=== PATIENT | male | born 1955 | race Caucasian/White ===

== ENCOUNTER 2022-07-16 12:15 | Inpatient (IN) | payer BC, MEDICARE ==
[2022-07-16] VITALS (12 sets, daily range): BP systolic 97–137; BP diastolic 63–88
[~2022-07-16] VITALS: Ht 175.3 cm; Wt 88.2 kg
--- NOTE | 2022-07-16 12:34 | Pre-Op Note & Conscious Sedat ---
Pre-Operative Progress Note Date H&P Reviewed: Jul 16, 2022 Time H&P Reviewed: 12:34 History & Physical: H&P Reviewed, Patient Examed, No changes noted Pre-Op Diagnosis: Inferior STEMI Conscious Sedation Pre-Proced ASA Score 2 For ASA 3 and 4: Consider anesthesia and medical clearance. Also, for patients with a history of failed moderate sedation consider anesthesia. Airway Lungs Heart ASA score ASA 1: a normal healthy patient ASA 2: a patient with a mild systemic disease (mid diabetes, controlled hypertension, obesity ASA 3: a patient with a severe systemic disease that limits activity (angina, COPD, prior Myocardial infarction) ASA 4: a patient with an incapacitating disease that is a constant threat to life (CHF, renal failure) ASA 5: a moribund patient not expected to survive 24 hrs. (ruptured aneurysm) ASA 6: a declared brain- patient whose organs are being harvested. For emergent operations, add the letter E after the classification Mallampati Classification Grade 2 Sedation Plan Analgesia, Amnesia, Plan communicated to team members, Discussed options with patient/fam, Discussed risks with patient/fam The patient is an appropriate candidate to undergo the planned procedure, sedation, and anesthesia. The patient immediately re-assessed prior to indication. EARL SHEPARD JR, MD Jul 16, 2022 12:34
--- NOTE | 2022-07-16 12:34 | Consultation-Cardiology ---
HPI-Cardiology Cardiology Consultation: Date of Consultation 07/16/22 Date of Admission 07/16/22 Attending Physician Admitting Physician Admitting Physician: aErl Peterson Jr, MD Attending Physician: Earl Peterson Jr, MD Consulting Physician EARL PETERSON JR, MD HPI: Time Seen by a Provider: 12:33 Chief Complaint: HISTORY AND PHYSICAL FOR STEMI ADMISSION Mj Hinson is a 67 yo male with hx of HTN presenting from [facility] via EMS after EKG there revealed what appears to be a STEMI in the inferior leads. He presented to [facility] this morning following onset of chest tightness with pain radiation into his neck, SOB, lightheadedness, and diaphoresis. He has no history of medical issues related to his heart other than hypertension, and no familial heart history. He has never experienced symptoms like this before. He has smoked 1 pack/day of cigarettes for years. He describes the pain as 10 out of 10. This started while he was working on building a wall. He went to the outside emergency room and due to the inferior ST evaluation noted on his electrocardiogram, I was contacted about a code STEMI. He was subsequently transferred to our hospital for further evaluation. In the outside hospital he was treated with aspirin, morphine and intravenous heparin. By the time he arrived to our hospital, his pain was 4/10. He denies dyspnea, paroxysmal nocturnal dyspnea, orthopnea, palpitations, syncope, or lower extremity edema. Certain portions of this document may have been dictated utilizing voice recognition technology. Inherent to this technology, typographical and grammat ical errors may exist. As much as I am diligent to identify and correct these mistakes, some errors may remain in the document. Review of Systems-Cardiology Review of Systems Other comments Review of 10 organ systems is as per the history of present illness, otherwise negative. YZX-Jjjnpy-Xvemsq Hx Patient Social History Marrital Status: Smoking Status: Current Everyday Smoker Past Medical History PMH As described under Assessment. Family Medical History Family Medical History: The patient does not know of any family history of premature coronary artery disease in first-degree relatives. Allergies and Home Medications Allergies Coded Allergies: No Known Drug Allergies (Unverified , 07/16/22) Patient Home Medication List Home Medication List Reviewed: Yes Amlodipine Besylate (Amlodipine Besylate) 5 Mg Tablet, 5 MG PO DAILY, (Reported) Entered as Reported by: KAYDEN SINHA on 07/16/221409 Last Action: Reviewed Naproxen Sodium (Aleve) 220 Mg Tablet, 220-440 MG PO BID PRN for PAIN-MILD (1- 4), (Reported) Entered as Reported by: KAYDEN HINOJOSAZANT on 07/16/221409 Last Action: Reviewed Exam Physical Exam General: Alert. No acute distress. Well nourished and appears stated age. Eye: Extraocular movements are intact. Conjunctivae are clear. There are no xanthelasma. HENT: Normocephalic. Atraumatic. Carotid pulsations 2/2 without bruits. Neck: Jugular venous pressure does not appear elevated. No thyromegaly appreciated. Respiratory: Lungs are clear to auscultation. Respirations are non-labored. Breath sounds are equal. Symmetrical chest wall expansion. Cardiovascular: Normal rate. Regular rhythm. No murmur. No gallop. Point of maximal impulse is not appear displaced. Good pulses equal in all extremities. No edema. Gastrointestinal: Soft. Normal bowel sounds. Skin: Skin turgor is normal. There is no pallor. Musculoskeletal: No kyphosis or scoliosis appreciated. Neurologic: Alert and oriented to person, place, time. Cranial nerves 3-12 appear grossly intact. The patient has good motor tone strength in the upper and lower extremities bilaterally. Psychiatric: Cooperative. Appropriate mood & affect. ECG Impression ECG Comment Electrocardiogram from the outside emergency room shows sinus rhythm with inferior ST elevation and ST depression in leads I and aVL. Diagnosis/Problems Diagnosis/Problems (1) ST elevation myocardial infarction (STEMI) of inferior wall, initial episode of care Status: Acute Assessment & Plan: This was due to acute thrombotic occlusion of the distal right coronary artery just distal to the bifurcation. This was treated with 1 drug-eluting stent which jailed the posterior descending artery. He also has mild to moderate residual disease in the proximal and mid right coronary artery. He has been started on aspirin, ticagrelor, beta-nicki and intensive dose statin medication. I will obtain an echocardiogram later today to assess his left ventricular function. He will be admitted to the telemetry unit and will probably need to stay 2 nights due to the acute myocardial infarction. (2) Primary hypertension Assessment & Plan: I will change amlodipine which she was taking at home over to beta-nicki in light of the acute myocardial infarction. (3) Cigarette smoker Assessment & Plan: He needs to quit smoking. He was counseled in this regard. (4) Obesity Assessment & Plan: He needs to work on weight loss. He was counseled in this regard. EARL PETERSON JR, MD Jul 16, 2022 12:34 SHAWN PATRICIA Jul 16, 2022 12:46
--- OUTSIDE RECORDS SUMMARY | 2022-07-16 12:34 | XMS REPORT | Clinical Summary ---
Author Author [facility] Organization [facility] Address Unknown Phone Unavailable Care Team Providers Care Director Of Global Talent Name Role Phone Self, Referral PCP Unavailable Jose A Loja MD Unavailable Source Comments Some departments are not documenting in the electronic medical record. If you d o not see the information that you expected, contact Release of Information in [facility] [employer] Information Management department at [phone] for further assistan ce in locating additional records.[facility] Allergies No known active allergies Medications End Date Status Medication Sig Dispensed Refills Start Date Active meloxicam (MOBIC) 15 mg Take 1 Tab by 0 PO tablet mouth Daily. Active hydrocodone/acetaminophen Take 1-2 Tabs 40 Tab 0 (VICODIN) 5/500 mg PO by mouth 0 tablet Every 4 Hours as needed for Pain. Active docusate (COLACE) 100 mg Take 1 Cap by 60 Cap 3 PO capsule mouth Twice 0 Daily as needed for Constipation. Active Problems Not on file Surgical History Surgery Date Site/Laterality Comments HX TONSILLECTOMY childhood HIP SURGERY ~1985 Back & Hip Surgery HX KNEE ARTHROSCOPY 1996 Left HX KNEE ARTHROSCOPY 1998 Left HX KNEE ARTHROSCOPY 2000 Right Medical History Medical History Date Comments DJD (degenerative joint disease) Social History Date Tobacco Use Types Packs/Day Years Used Former Smoker Smokeless Tobacco: Never Used Comments: 1028-10 Comments Alcohol Use Standard Drinks/Week Yes 2 (1 standard drink = 0.6 o z pure alcohol) Sex Assigned at Date Recorded Not on file Obstetrics History Last Filed Vital Signs Reading Time Taken Comments Vital Sign 136/86 07/11/2010 6:18 AM CDT Blood Pressure 74 07/11/2010 6:18 AM CDT Pulse 37.1 C (98.7 F) 07/11/2010 6:18 AM CDT Temperature - - Respiratory Rate 93% 07/11/2010 6:18 AM CDT Oxygen Saturation - - Inhaled Oxygen Concentration 81.7 kg (180 lb 1.6 oz) 07/10/2010 8:55 AM CDT Weight 175.3 cm (5' 9") 07/05/2010 11:00 AM CDT Height 26.6 07/05/2010 11:00 AM CDT Body Mass Index Plan of Treatment Health Maintenance Due Date Last Done Comments COVID-19 VACCINE (#1) 1957 HIV SCREENING 1972 DTAP/TDAP VACCINES (1 - 1975 Tdap) HEPATITIS C SCREENING 1975 PHYSICAL (COMPREHENSIVE) 1975 EXAM COLORECTAL CANCER 2002 SCREENING SHINGLES RECOMBINANT 2007 VACCINE (1 of 2) DEPRESSION SCREENING 09/07/2021 INFLUENZA VACCINE 04/07/2022 ABDOMINAL AORTIC ANEURYSM 2022 SCREENING PNEUMOCOCCAL VACCINE (1 - 2022 PCV) Results Not on filefrom Last 3 Months Advance Directives Date Inactivated Comments Code Status Date Activated 07/11/2010 3:24 PM Full Code 07/09/2010 4:17 PM Care Teams Start Date End Date Director Of Global Talent Relationship Specialty 07/05/10 Self, Referral PCP - General 07/08/10 Jose A Loja MD [address] [facility] [address] [place] [address]
[2022-07-16] MEDS ORDERED: VERAPAMIL 5 MG/2 ML (CALAN) VIAL IV ONE (12:44)
[2022-07-16] MEDS ORDERED: fentaNYL INJ 100 MCG/2 ML AMP ONE (12:44)
[2022-07-16] MEDS ORDERED: NS (IVPB) 0 ML ONE (12:44)
[2022-07-16] MEDS ORDERED: NS IV 1000 ML 1,000 ML ONE (12:45)
[2022-07-16] MEDS ORDERED: niCARdipine IV 50 MG (PYXIS DRIP KIT) ONE (12:45)
[2022-07-16] MEDS ORDERED: LIDOCAINE 1% INJ 30 ML (XYLOCAINE) VIAL ONE (12:45)
[2022-07-16] MEDS ORDERED: MIDAZOLAM 5 MG/5 ML (VERSED) VIAL ONE (12:45)
[2022-07-16] MEDS ORDERED: HEParin 1000 UNIT/ML (10ML VIAL) FOR BOLUS ONE (12:45)
[2022-07-16] MEDS ORDERED: NITRO DRIP 25000 MCG/D5W 250 ML IV ONE (12:45)
[2022-07-16] MEDS ORDERED: HEParin (CATH LAB) 2,000 ML IV ONE (12:45)
[2022-07-16] MEDS ORDERED: ATROPINE INJECTION 1 MG/10 ML SYR (ABBOTT) ONE (12:55)
[2022-07-16] MEDS ORDERED: TICAGRELOR 90 MG TABLET (BRILINTA) PO ONE (12:56)
[2022-07-16] MEDS ORDERED: ACETAMINOPHEN 325 MG TABLET PO PRN (14:00)
[2022-07-16] MEDS ORDERED: ANTACID SUSP 30 ML UDC (MYLANTA) PO PRN (14:00)
[2022-07-16] MEDS ORDERED: ZOLPIDEM 5 MG (AMBIEN) TAB PO PRN (14:00)
[2022-07-16] MEDS ORDERED: AMLO-250 PO (14:10)
[2022-07-16] MEDS ORDERED: NAPR220T66 PO (14:10)
[2022-07-16] MEDS: NS IV 1000 ML 1,000 ML IV SCH ×2 (16:50→23:16)
--- NOTE | 2022-07-16 17:13 | Cardiac Cath Report ---
CARDIAC CATHETERIZATION DATE OF PROCEDURE: 07/16/2022 INDICATION: Inferior STEMI. HISTORY: The patient is a 67 year old male with no previously known history of coronary artery disease who presented to [facility] emergency room after approximately 1 hour of chest pain. His electrocardiogram at the outside emergency room showed inferior ST elevation with ST depression in the lateral limb leads. A code STEMI was called and he was transferred to our hospital for emergent cardiac catheterization. Given his current clinical status, he is considered severely frail. He has no history of heart failure. PROCEDURES PERFORMED: 1. Left heart catheterization with hemodynamic measurements. 2. Diagnostic [place] coronary angiography. 3. Drug-eluting stent placement to the distal right coronary artery. This was the ischemia related vessel for the acute inferior ST elevation myocardial infarction. PROCEDURE DESCRIPTION: After informed consent and in the fasting state, left heart catheterization was performed through the right radial artery utilizing a 6 Cymro system by percutaneous approach. A 5 Cymro JL 3.5 diagnostic catheter was utilized to interrogate the left coronary artery and a 6 Cymro JR4 guide catheter was utilized to interrogate the left ventricle and right coronary artery and for the percutaneous coronary intervention. All catheters were exchanged over a guidewire. Following the procedure, a vascular band was applied to the radial artery access site and the sheath was removed with good hemostasis. RESULTS: HEMODYNAMICS: The aortic pressure was 135/78 mmHg. The left ventricular pressure was 147/0 mmHg with a left ventricular end-diastolic pressure of 28 mmHg. There was no significant pressure gradient upon pullback across aortic valve. CORONARY ANGIOGRAPHY: Left main coronary artery: There was a 50% stenosis in the ostium with JERI-3 flow. Left anterior descending coronary artery: Free of significant disease but there was approximately a 20 mm segment of bridging in the distal segment after the last significant diagonal branch. There was a moderate sized first diagonal branch which contained a 50% stenosis proximally with JERI-3 flow. Left circumflex coronary artery: Free of significant disease. Right coronary artery: There was a 30% stenosis proximally followed by a 50% stenosis in the midsegment and the vessel was totally occluded distally just distal to the takeoff of the posterior descending artery with evidence of thrombus and JERI 0 flow. This was the ischemia related vessel for the acute myocardial infarction. PERCUTANEOUS CORONARY INTERVENTION: Percutaneous coronary intervention was c arried out on the distal right coronary artery through the 6 Cymro JR4 guide catheter. The lesion was successfully crossed with a Whisper medium support guidewire. I subsequently performed coronary angioplasty with a 2.5 x 12 mm Trek balloon at a pressure of 8-10 lulu for several inflations. Flow was restored. I subsequently deployed a 3 x 33 mm drug-eluting Xience Skypoint diana nt in the distal right coronary artery overlapping and jailing the posterior descending artery and a pressure of 16 lulu. Following stent placement, there was 0% residual stenosis with JERI-3 flow. There was no evidence of plaque shift into the posterior descending artery. IMPRESSION: 1. Markedly elevated left ventricular end-diastolic pressure. 2. There was a total thrombotic occlusion of the distal right coronary artery with JERI 0 flow. This was the ischemia related vessel for the acute inferior ST elevation myocardial infarction. 3. There was mild to moderate disease in the proximal and mid right coronary artery as well as an area of bridging in the distal left anterior descending coronary artery as outlined above. 4. Status post drug-eluting stent placement to the distal right coronary artery with a 3 x 33 mm Xience Skypoint stent with 0% residual stenosis and JERI-3 flow . The stent does intermediate the posterior descending artery but there was no evidence of plaque shift or compromise of flow in this branch. 5. I will obtain an echocardiogram later today to assess his left ventricular function. Certain portions of this document may have been dictated utilizing voice recognition technology. Inherent to this technology, typographical and grammatical errors may exist. As much as I am diligent to identify and correct these mistakes, some errors may remain in the document. EARL SHEPARD JR, MD Jul 16, 2022 17:13
[2022-07-16] MEDS: NICOTINE 21 MG (NICODERM) PATCH TD SCH (17:57)
[2022-07-16] MEDS: TICAGRELOR 90 MG TABLET (BRILINTA) PO SCH (22:30)
[2022-07-16] MEDS: ROSUVASTATIN 20 MG (CRESTOR) TABLET PO SCH (22:30)
[2022-07-17] VITALS (7 sets, daily range): BP systolic 127–146; BP diastolic 62–78
[2022-07-17 06:18] LABS: BASOPHILS # (AUTO) 0.1 10^3/uL (0.0-0.1); BASOPHILS % (AUTO) 1 % (0-10); EOSINOPHILS # (AUTO) 0.4 10^3/uL (0.0-0.3); EOSINOPHILS % (AUTO) 3 % (0-10); HEMATOCRIT 44 % (40-54); HEMOGLOBIN 15.2 g/dL (13.3-17.7); LYMPHOCYTES # (AUTO) 2.2 10^3/uL (1.0-4.0); LYMPHOCYTES % (AUTO) 17 % (12-44); MEAN CORPUSCULAR HEMOGLOBIN 32 pg (25-34); MEAN CORPUSCULAR HGB CONC 35 g/dL (32-36); MEAN CORPUSCULAR VOLUME 92 fL (80-99); MEAN PLATELET VOLUME 10.8 fL (9.0-12.2); MONOCYTES # (AUTO) 1.5 10^3/uL (0.0-1.0); MONOCYTES % (AUTO) 12 % (0-12); NEUTROPHILS # (AUTO) 8.7 10^3/uL (1.8-7.8); NEUTROPHILS % (AUTO) 67 % (42-75); PLATELET COUNT 258 10^3/uL (130-400); WHITE BLOOD COUNT 12.9 10^3/uL (4.3-11.0)
[2022-07-17 06:37] LABS: POTASSIUM 3.9 MMOL/L (3.6-5.0)
[2022-07-17 06:38] LABS: CALCIUM 9.3 MG/DL (8.5-10.1)
[2022-07-17 06:43] LABS: CREATININE SERUM 1.27 MG/DL (0.60-1.30)
[2022-07-17] MEDS: NICOTINE 21 MG (NICODERM) PATCH TD SCH (07:33)
[2022-07-17] MEDS: NICOTINE PATCH REMOVAL TP SCH (07:34)
[2022-07-17] MEDS: ASPIRIN E.C. 81 MG (ECOTRIN) TAB PO SCH (08:15)
[2022-07-17] MEDS: TICAGRELOR 90 MG TABLET (BRILINTA) PO SCH ×2 (08:15→20:37)
--- NOTE | 2022-07-17 08:40 | Cardiology Progress Note ---
Subjective Date Seen by Provider: Jul 17, 2022 Time Seen by Provider: 08:00 Subjective/Events-last exam Pt reports feeling much better after yesterday's procedure. He denies CP, SOB, edema, palpitations, and syncope. He experienced some anxiety trying to sleep overnight. He is hoping to "get up and moving today" and expresses that he'd like to be discharged home. Dr. Peterson He denies any further chest discomfort. He denies dyspnea, palpitations, syncope, or ankle edema. He was wearing a nicotine patch last night but became anxious and removed the patch. Certain portions of this document may have been dictated utilizing voice recognition technology. Inherent to this technology, typographical and grammatical errors may exist. As much as I am diligent to identify and correct these mistakes, some errors may remain in the document. Review of Systems General: Fatigue, Appetite HEENT: No Head Aches, No Visual Changes Pulmonary: No Dyspnea Cardiovascular: No: Chest Pain, Palpitations, Edema, Lt Headedness Gastrointestinal: No: Vomiting, Abdominal Pain Genitourinary: No Dysuria; Frequency Musculoskeletal: other (denies any pain) Neurological: No: Numbness, Confusion Focused Exam Respiratory: Chest Non Tender, Lungs Clear, Normal Breath Sounds, No Accessory Muscle Use, No Respiratory Distress Cardiovascular: Regular Rate, Rhythm (slight bradycardia recorded overnight, currently normal rate), No Edema Skin: normal color, warm/dry Objective-Cardiology Exam Last Set of Vital Signs Vital Signs 07/17/22 07/17/22 07:44 08:00 Temp 36.4 Pulse 60 Resp 16 B/P (MAP) 137/75 (95) Pulse Ox 97 O2 Delivery Room Air I&O Intake and Output 07/16/22 23:59 Intake Total 300 ml Output Total 775 ml Balance -475 ml Intake Oral 300 ml Output Urine Total 775 ml Daily Weight Change No General: Alert, Oriented X3, Cooperative, No Acute Distress HEENT: Atraumatic, EOMI Neck: Supple Lungs: Clear to Auscultation, Normal Air Movement Heart: Regular Rate, No Murmurs Abdomen: Soft, No Tenderness Extremities: No Edema, No Tenderness/Swelling Skin: No Significant Lesion Neuro: Normal Speech, Normal Tone Psych/Mental Status: Mental Status NL, Mood NL Other physical findings Dr. Peterson: General: Alert. No acute distress. Eye: No xanthelasma. HENT: Normocephalic. Neck: Jugular venous pressure does not appear elevated. Respiratory: Lungs are clear to auscultation. Respirations are non-labored. Breath sounds are equal. Symmetrical chest wall expansion. Cardiovascular: Normal rate. Regular rhythm. No murmur. No gallop. No edema. Gastrointestinal: Soft. Normal bowel sounds. Skin: Warm. Dry. Neurologic: Alert and oriented to person, place, time. Cranial nerves 3-11 grossly intact. Psychiatric: Cooperative. Appropriate mood & affect. Results Lab Laboratory Tests 07/17/22 05:53 A/P-Cardiology Admission Diagnosis (1) ST elevation myocardial infarction (STEMI) of inferior wall, initial episode of care Status: Acute Assessment & Plan: This was due to acute thrombotic occlusion of the distal right coronary artery just distal to the bifurcation. This was treated with 1 drug-eluting stent which jailed the posterior descending artery. He also has mild to moderate residual disease in the proximal and mid right coronary artery. He has been started on aspirin, ticagrelor, beta-nicki and intensive dose statin medication. His ejection fraction is normal. He is having some AIVR (accelerated idioventricular rhythm) but no ventricular tachycardia. I will observe him in the hospital for 1 additional night on telemetry and he can probably be discharged home tomorrow. I will transfer him to the medical floor with telemetry. (2) Primary hypertension Assessment & Plan: Blood pressure has been reasonably controlled with carvedilol. He was on amlodipine at home which I discontinued. (3) Mixed hyperlipidemia Assessment & Plan: Continue intensive dose statin medication in light of the acute myocardial infarction. (4) Cigarette smoker Assessment & Plan: He needs to quit smoking. He was counseled in this regard. Assessment/Plan STEMI- inferior wall Primary HTN Smokes Obesity HLD- according to BMP this a.m. He has been started on aspirin, ticagrelor, beta-nicki and intensive dose statin medication. His amlodipine has been d/c Expecting a 2-night overnight stay due to [place] Continue to monitor telemetry Completions Manager on stopping smoking Supervisory-Addendum Brief Verification & Attestation Participated in pt care: history, MDM, physical Personally performed: exam, history, MDM Care discussed with: Medical Student Procedures: n/a Results interpretation: Verified all documentation I verified the above information. SHAWN PATRICIA Jul 17, 2022 08:40 EARL PETERSON JR, MD Jul 17, 2022 10:35
[2022-07-17] MEDS: NS IV 1000 ML 1,000 ML IV SCH (09:27)
[2022-07-17] MEDS ORDERED: NITROGLYCERIN 0.4 MG SL TABS BTL 25'S SL PRN (10:30)
--- NOTE | 2022-07-17 16:24 | Diagnostic Imaging Report ---
INDICATION: Myocardial infarction. PA and lateral chest obtained at 10:59 a.m. FINDINGS: Heart and mediastinal silhouette are normal in appearance. The lungs appear clear except for a calcified granuloma in the right upper lobe. There is no pneumothorax or pleural fluid. IMPRESSION: No acute process in the chest. Dictated by: Dictated on workstation # [id number]
[2022-07-17] MEDS: ROSUVASTATIN 20 MG (CRESTOR) TABLET PO SCH (20:37)
[2022-07-18 03:25] VITALS: BP 135/64
[2022-07-18 08:00] VITALS: BP 143/77
[2022-07-18] MEDS ORDERED: NITR0.4T42 SL (08:33)
[2022-07-18] MEDS ORDERED: TICA90TA PO (08:33)
[2022-07-18] MEDS ORDERED: ROSU20TA32 PO (08:33)
[2022-07-18] MEDS ORDERED: ASPI-1238 PO (08:33)
[2022-07-18] MEDS ORDERED: CARV3.122 PO (08:33)
[2022-07-18] MEDS: NICOTINE PATCH REMOVAL TP SCH (09:01)
[2022-07-18] MEDS: TICAGRELOR 90 MG TABLET (BRILINTA) PO SCH (09:04)
[2022-07-18] MEDS: ASPIRIN E.C. 81 MG (ECOTRIN) TAB PO SCH (09:04)
[2022-07-18] MEDS: NICOTINE 21 MG (NICODERM) PATCH TD SCH (09:04)
--- NOTE | 2022-07-18 09:29 | Discharge Summary ---
Diagnosis/Chief Complaint Date of Admission Jul 16, 2022 at 12:15 Date of Discharge 07/18/22 Discharge Date: Jul 18, 2022 Discharge Time: 10:30 Admission Diagnosis Admission Diagnosis Inferior STEMI Discharge Diagnosis 1. Inferior STEMI. 2. Coronary artery disease with unstable angina. 3. Primary hypertension. 4. Mixed hyperlipidemia. 5. Cigarette smoker. 6. Overweight. Reason Hospital Visit Inferior STEMI transferred from outside hospital. Discharge Summary Hospital Course Was the Problem List Reviewed?: Yes Hospital Course The patient presented to the emergency room at [facility] approximately 1 hour after the onset of chest pain. His electrocardiogram showed an inferior STEMI and he was transferred for emergent cardiac catheterization which he underwent on 07/16 at our facility. This showed a thrombotic occlusion of the distal right coronary artery that was treated with balloon angioplasty and 1 drug-eluting stent. He did have some ventricular arrhythmias in the first 24 hours. He had an echocardiogram showing a normal ejection fraction. He was placed on the usual guideline directed medical therapy with aspirin, ticagrelor, carvedilol, and intensive dose statin medication. His chest discomfort resolved by the following day. He had no signs of heart failure and the arrhythmias resolved within 48 hours. Over 30 minutes was spent in direct [id number] contact with the patient and preparing this discharge summary. Labs Laboratory Tests 07/16/22 14:30: Troponin I 5.989*H 07/16/22 22:34: Troponin I 42.064*H 07/17/22 05:53: Troponin I 22.655*H, White Blood Count 12.9H, Neutrophils # (Auto) 8.7H, Monocytes # (Auto) 1.5H, Eosinophils # (Auto) 0.4H, Carbon Dioxide Level 19L, Triglycerides Level 189H, Cholesterol Level 209H, LDL Cholesterol Direct 136H, HDL Cholesterol 39L Procedures Echocardiogram. Cardiac catheterization and percutaneous coronary intervention. Discharge Physical Examination Allergies: Coded Allergies: No Known Drug Allergies (Unverified , 07/16/22) Vitals & I&Os Vital Signs Date Time Temp Pulse Resp B/P (MAP) Pulse Ox O2 Delivery O2 Flow Rate FiO2 07/18/22 11:58 07/18/22 09:31 95 Room Air 07/18/22 08:00 36.3 55 20 General Appearance: Alert, Oriented X3, Cooperative, No Acute Distress HEENT: Atraumatic, EOMI, Mucous Memb Moist/[place] Respiratory: Clear to Auscultation, Normal Air Movement Cardiovascular: Regular Rate, Normal S1, Normal S2, No Murmurs Abdominal: Normal Bowel Sounds, Soft Extremities: No Clubbing, No Cyanosis, No Edema, Normal Pulses Skin: No Rashes, No Breakdown, No Significant Lesion Neuro: Normal Speech, Strength at 5/5 X4 Ext, Cranial Nerves 3-12 NL Psych/Mental Status: Mental Status NL, Mood NL Discharge Home Medications Reviewed and agree with Discharge Medication list on patient's Discharge Instruction sheet Condition at Discharge Improved. Instructions to Patient/Family Please see electronic discharge instructions given to patient. Clinical Quality Measures End of Life/Advance Care Plan: Advance Care discuss with: patient Plan: initiate discussion Admission Status Admission Status: Inpatient Order (span 2 midnights) Reason for Inpatient Admission: Acute ST elevation myocardial infarction AMI/AHF: Ejection Fraction: Above/Equal to 40 D/C Inst. for HF given: No ASA Given prior to admit: Yes ASA po Prior to arrival: Yes DVT/VTE Risk/Contraindication: VTE Addressed: Yes VTE Present on Admission: No EARL SHEPARD JR, MD Jul 18, 2022 09:29
== END 2022-07-18 11:26 | disposition home or self-care (01) | DRG 247 ==
LOC: CSD 12:15 → 4TH 07-17 16:21
PROVIDERS: ADMIT Internal Medicine Cardiovascular Disease; ATTEND Internal Medicine Cardiovascular Disease
PROC: 027034Z Dilation of Coronary Artery, One Artery with Drug-eluting Intraluminal Device, Percutaneous Approach (ICD-10-PCS; principal; 2022-07-16)
PROC: B2111ZZ Fluoroscopy of Multiple Coronary Arteries using Low Osmolar Contrast (ICD-10-PCS; 2022-07-16)
PROC: 4A023N7 Measurement of Cardiac Sampling and Pressure, Left Heart, Percutaneous Approach (ICD-10-PCS; 2022-07-16)
DX: I21.11 ST elevation (STEMI) myocardial infarction involving right coronary artery (principal); I25.110 Atherosclerotic heart disease of native coronary artery with unstable angina pectoris; I10 Essential (primary) hypertension; F17.210 Nicotine dependence, cigarettes, uncomplicated; E78.2 Mixed hyperlipidemia; E66.3 Overweight; Z68.28 Body mass index [BMI] 28.0-28.9, adult
CPT/HCPCS: 36415; 71046; 80048; 80061; 84484; 85025; 85347; 93005; 93306; 93458

== ENCOUNTER → 2023-03-18 | Outpatient (CLI) | payer MEDICARE, OTHER ==
[~2023-03-18] MED LIST: AMLO-250 PO; ASPI-1238 PO; CARV3.122 PO; CATHETER FLUSH 10 ML SYR IVP PRN; NAPR220T66 PO; NITR0.4T42 SL; REGADENOSON 0.4 MG/5 ML SYR (LEXISCAN) IV ONE; ROSU20TA32 PO; TICA90TA PO
[2023-03-18 09:37] VITALS: BP 186/94
--- NOTE | 2023-03-19 11:38 | STRESS TEST ---
DATE OF SERVICE: 03/18/2023 ORDERING PHYSICIAN: Dr. Day. CLINICAL DIAGNOSIS: Chest discomfort. Baseline images were carried out after injection of 10.95 mCi of technetium-99m tetrofosmin. This was followed by 0.4 regadenoson and 31.8 mCi of technetium-99m tetrofosmin for stress imaging. The electrocardiogram showed sinus rhythm at baseline. It did not change significantly with regadenoson infusion. The patient noted some headache and shortness of breath following regadenoson infusion, which resolved in a few minutes. Review of images at rest and following stress does not indicate any perfusion defects consistent with significant myocardial ischemia or infarction. Gated images show normal global left ventricular systolic function with normal regional wall motion. Left ventricular ejection fraction is calculated to be 56%. CONCLUSIONS: 1. No evidence of significant myocardial ischemia or infarction study. 2. Normal regional wall motion. 3. Normal global left ventricular systolic function with a calculated ejection fraction of 56%. Job ID: [id number] DocumentID: [id number] Dictated Date: 03/19/2023 10:10:14 Manager Developmental Date: 03/19/2023 11:36:00 Dictated By: GINGER DAY MD; MA; FACP; FACC;
== END ==
LOC: CARD 08:15
PROVIDERS: ATTEND Internal Medicine Cardiovascular Disease
DX: R07.89 Other chest pain (principal)
CPT/HCPCS: 78452; 93017; A9502

== ENCOUNTER → 2023-03-23 | Outpatient (CLI) | payer MEDICARE, OTHER ==
[~2023-03-23] MED LIST changes: -CATHETER FLUSH 10 ML SYR IVP PRN; -REGADENOSON 0.4 MG/5 ML SYR (LEXISCAN) IV ONE; -ROSU20TA32 PO; +ROSU20TA73 PO
== END ==
LOC: CARD 08:25
PROVIDERS: ATTEND Internal Medicine Cardiovascular Disease
DX: I51.7 Cardiomegaly (principal)
CPT/HCPCS: 93306